=== PATIENT | female | born 1945 | race African-American/Black ===

== ENCOUNTER 2018-06-16 12:05 | Emergency (ER) | payer MEDICARE, BC ==
[~2018-06-16] VITALS: Ht 165.1 cm; Wt 68.0 kg
--- NOTE | 2018-06-16 12:19 | NUR ---
C/O GLF + R ANKLE INJURY, -KO. EVIDENCE OF SOFT TISSUE SWELLING. CURRENT PAIN LEVEL 3/10. NO OTHER COMPLAINTS AT THIS TIME. SEEN BY MARLON REY. AWAITING ORDERS.
[2018-06-16] MEDS ORDERED: ACETAMINOPHEN ES 500 MG TABLET ONE (12:56)
--- NOTE | 2018-06-16 12:59 | NUR ---
MEDICATION GIVEN PER ORDER FOR PAIN 08/14.
[2018-06-16] MEDS ORDERED: ACETAMINOPHEN ES 500 MG TABLET PO ONE (13:00)
--- NOTE | 2018-06-16 13:21 | NUR ---
CARDIOPULMONARY TECHNICIAN AT BEDSIDE FOR SPLINT APPLICATION
--- NOTE | 2018-06-16 13:37 | NUR ---
MARLON LUA PAGED FOR ORTHO CONSULT
--- NOTE | 2018-06-16 14:00 | NUR ---
MARLON LAU PAGED AGAIN
[2018-06-16 14:19] VITALS: BP 136/93
--- NOTE | 2018-06-16 14:19 | NUR ---
Patient discharged to home in stable condition. Written and verbal after care instructions given. Patient verbalizes understanding of instruction.
[2018-06-30] MEDS ORDERED: ASPI-992 PO (08:23)
== END 2018-06-16 14:21 | disposition home or self-care (01) ==
LOC: ER 12:07
DX: S82.61XA Displaced fracture of lateral malleolus of right fibula, initial encounter for closed fracture (principal); S90.01XA Contusion of right ankle, initial encounter; F20.9 Schizophrenia, unspecified; F22 Delusional disorders; Z85.3 Personal history of malignant neoplasm of breast; W01.0XXA Fall on same level from slipping, tripping and stumbling without subsequent striking against object, initial encounter; Y93.89 Activity, other specified; Y92.89 Other specified places as the place of occurrence of the external cause; Y99.8 Other external cause status
CPT/HCPCS: 73560-TC; 73590-TC; 73610-TC

== ENCOUNTER 2018-06-27 05:32 | Inpatient (IN) | payer MEDICARE, BC ==
[~2018-06-27] VITALS: Ht 160 cm; Wt 68.0 kg
[2018-06-27] VITALS (12 sets, daily range): BP systolic 123–140; BP diastolic 59–73
[2018-06-27] MEDS ORDERED: ANESTHESIA TRAY IN PYXIS 1 EA TRAY MC ONE (06:26)
[2018-06-27] MEDS ORDERED: BACITRACIN 50000 UNITS/VIAL ONE (06:26)
[2018-06-27] MEDS ORDERED: FENTANYL PF 100MCG/2ML AMPUL ONE ×2 (07:07→08:34)
[2018-06-27] MEDS ORDERED: MIDAZOLAM HCL 2 MG/2ML VIAL ONE (07:08)
[2018-06-27] MEDS ORDERED: HYDROMORPHONE INJ 2 MG/ML DISP.SYRIN ONE (08:49)
[2018-06-27] MEDS ORDERED: KETOROLAC TROMETHAMINE INJ 30 MG/ML VIAL ONE (08:58)
[2018-06-27] MEDS ORDERED: HYDROMORPHONE 1 MG/1 ML DISP.SYRIN ONE (09:02)
--- NOTE | 2018-06-27 09:20 | NUR ---
STOPPER SETTER PATIENT A/OX3, BREATHING EVEN AND UNLABORED, ON O2 AT 3LPM VIA NC SPO2 96%. DAUGHTER AT BEDSIDE, SKIN ASSESSMENT COMPLETED, SKIN DRY AND INTACT, RLE BOOTS IN PLACED, CHECKED FOR CIRCULATION AND BREAKDOWN. VITALS STABLE, NO DISTRESS NOTED, PIV ON LEFT AC G18. NEEDS ATTENDED, CALL LIGHT WITHINR EACh, WILL CONTINUE TO MONITOR.
[2018-06-27] MEDS ORDERED: ZOLPIDEM TARTRATE 5 MG TABLET PO PRN (11:30)
[2018-06-27] MEDS ORDERED: ONDANSETRON HCL/PF 4 MG/2 ML VIAL IVP PRN (11:30)
[2018-06-27] MEDS ORDERED: Z GUARD REMEDY 2 OZ OINT TP PRN (11:30)
[2018-06-27] MEDS ORDERED: ACETAMINOPHEN 325 MG TABLET PO PRN (11:30)
[2018-06-27] MEDS ORDERED: MAGNESIUM HYDROXIDE 30 ML UDC PO PRN (11:30)
[2018-06-27] MEDS ORDERED: MAG HYDROX/AL HYDROX/SIMETH 30 ML UDC PO PRN (11:30)
[2018-06-27] MEDS ORDERED: HALO2TAB PO (13:29)
[2018-06-27] MEDS ORDERED: ACET325T53 PO (13:30)
[2018-06-27] MEDS ORDERED: TRAZ-214 PO (13:30)
--- NOTE | 2018-06-27 15:45 | NUR ---
ENDORSED TO BRYCE MCDANIEL FOR CONTINUITY OF CARE.
[2018-06-27] MEDS: CEFAZOLIN 1 GM in IV D5W 50 ML IV SCH ×2 (16:24→23:30)
--- NOTE | 2018-06-27 19:22 | NUR ---
Handoff to JONAS Fernandes. Mika Doty RN
--- NOTE | 2018-06-27 19:45 | NUR ---
MSRN FULLY AWAKE, DAUGHTER AT BEDSIDE.. PAIN TOLERABLE WILL CALL IF PAIN WORSENS. OFFERED BEDPAN VOIDED FREELY FA[place] AM[place] CLEAR YELLOW URINE OUTPUT. SAFETY PRECAUTIONS EMPHASIZED, CALL LIGHT USE REVIEWED WITH PATIENT, APPEARS TO UNDERSTAND. PLAN OF CARE AND MEDICATION REGIMEN EMPHSIZED, WELL UNDERSTOOD.
[2018-06-27] MEDS: HYDROCODONE/APAP 5/325MG 1 EACH TABLET PO PRN (22:04)
--- NOTE | 2018-06-27 22:09 | NUR ---
msrn VERBALIZES RIGHT ANKLE PAIN, S/O ORIF TODAY. NORCO 1 TAB ADMINISTERD. INSTRUCTED TO CALL STAFF IF NO RELIEF. CLOSELY WATCHED.
--- NOTE | 2018-06-27 22:58 | NUR ---
MSRN ENDORSED TO RN FOR CONTINUITY OF CARE
--- NOTE | 2018-06-27 23:00 | NUR ---
MS RN NOTE RECEIVED [facility] REPORT. PT A&O X4, ABLE TO MAKE NEEDS KNOWN. NO SIGNS OF SOB, DISTRESS, NO C/O PAIN. PT CURRENTLY ASLEEP, EASILY AROUSABLE WHEN NAME IS CALLED. ALL CURRENT NEEDS MET. SAFETY PRECAUTIONS IN PLACE: BED LOW, LOCKED, UPPER RAILS UP, AND CALL LIGHT WITHIN REACH. WILL CONT. TO MONITOR.
[2018-06-27] MEDS ORDERED: HALOPERIDOL 1 MG TABLET PO SCH (23:30)
[2018-06-28] MEDS: HYDROCODONE/APAP 5/325MG 1 EACH TABLET PO PRN ×2 (03:29→08:41)
--- NOTE | 2018-06-28 03:29 | NUR ---
MS RN NOTE PRN NORCO 5-325 MG GIVEN PO FOR PAIN ON R ANKLE 09/13. WILL CONT TO MONITOR.
--- NOTE | 2018-06-28 06:21 | NUR ---
MS RN NOTE PT A&O X4, ABLE TO MAKE NEEDS KNOWN. NO SIGNS OF SOB, DISTRESS, NO C/O PAIN. PT CURRENTLY WATCHING TV. ALL CURRENT NEEDS MET. SAFETY PRECAUTIONS IN PLACE: BED LOW, LOCKED, UPPER RAILS UP, AND CALL LIGHT WITHIN REACH. WILL CONT. TO MONITOR AND ENDORSE TO NEXT SHIFT FOR LEV.
[2018-06-28 06:32] LABS: BASOPHILS % (AUTO) 0.5 % (0.0-2.0); EOSINOPHILS % (AUTO) 1.7 % (0.0-6.0); HEMATOCRIT 29 % (33-45); LYMPHOCYTES # (AUTO) 1.6 /CMM (0.8-4.8); LYMPHOCYTES % (AUTO) 22.9 % (20.0-44.0); MEAN CORPUSCULAR HGB CONC 35 g/dl (31.0-36.0); MEAN CORPUSCULAR VOLUME 96 fL (82-100); MONOCYTES # (AUTO) 0.8 /CMM (0.1-1.30); MONOCYTES % (AUTO) 12.2 % (2.0-12.0); NEUTROPHILS # (AUTO) 4.3 /CMM (1.8-8.9); NEUTROPHILS % (AUTO) 62.7 % (43.0-81.0); PLATELET COUNT (AUTO) 268 /CMM (150-450); RED BLOOD CELL COUNT(AUTO) 3.03 MIL/uL (4.0-5.2); WHITE BLOOD COUNT (AUTO) 6.8 K/uL (4.3-11.0)
[2018-06-28 06:47] LABS: CHOLESTEROL 181 mg/dL (<200); HDL CHOLESTEROL 57 mg/dL (40-60); LDL 117 mg/dL (0-99); TRIGLYCERIDES 45 mg/dL (30-150)
[2018-06-28 06:56] LABS: CALCIUM, SERUM 8.9 mg/dL (8.5-10.1); CARBON DIOXIDE 27 mmol/L (21-32); CHLORIDE 106 mmol/L (98-107); CREATININE 0.9 mg/dL (0.6-1.3); GLUCOSE 93 mg/dL (74-106); MAGNESIUM 1.9 mg/dL (1.8-2.4); PHOSPHORUS 3.8 mg/dL (2.5-4.9); POTASSIUM 4.3 mmol/L (3.5-5.1); SODIUM SERUM 141 mmol/L (136-145); UREA NITROGEN, BLOOD 13 mg/dL (7-18)
[2018-06-28 08:00] VITALS: BP 116/64
--- NOTE | 2018-06-28 08:15 | NUR ---
MS RN RECEIVED ON BED, AWAKE,ALERT,ORIENTED X4,NOT IN ANY FORM OF DISTRESS, RESPIRATIONS EVEN AND UNLABORED,NO SOB NOTED, LUNGS ARE CLEAR,ABDOMEN SOFT,POSITIVE BOWEL SOUNDS,DENIES PAIN AT THIS TIME, WILL MONITOR PATIENT'S CONDITION.
[2018-06-28] MEDS: ASPIRIN 325 MG TABLET PO SCH (08:39)
--- NOTE | 2018-06-28 09:00 | NUR ---
MS MCDANIEL BREAKFAST SERVED,DUE MED GIVEN,TOLERATED WELL.
--- NOTE | 2018-06-28 10:00 | NUR ---
ms rn was seen by dennis allen/ orders made and carried out.
[2018-06-28 16:00] VITALS: BP 124/67
[2018-06-28] MEDS: MORPHINE SULFATE INJ 2 MG/ML DISP.SYRIN IV PRN ×2 (16:57→20:50)
--- NOTE | 2018-06-28 19:19 | NUR ---
MS RN ON BED, NO DISTRESS ALL NEEDS ATTENDED.
[2018-06-28 20:00] VITALS: BP 146/82
--- NOTE | 2018-06-28 20:00 | NUR ---
rn opening note patient seen in bed down locked srx2. patient is on ra in no apparent distress. patietn is post op day 2 for right ankle orif patient has boot to right ankle nwb to right foot. reviewed poc. questions concerns addressed. call light in reach verbalized understanding to call for assistance as needed.
[2018-06-28] MEDS ORDERED: HALOPERIDOL ORAL CONC 2 MG/ML BOTTLE PO SCH (22:00)
[2018-06-28] MEDS: TRAZODONE 50 MG TABLET PO PRN (23:26)
--- NOTE | 2018-06-29 07:30 | NUR ---
RN CLOSING NOTES. REPORT GIVEN TO RUKHSANA . PATIENT IN NO APPARENT DISTRESS. IN BED DOWN LOCKED SR X2 CALL LIGHT IN REACH.
[2018-06-29 07:44] LABS: BASOPHILS % (AUTO) 0.7 % (0.0-2.0); EOSINOPHILS % (AUTO) 2.7 % (0.0-6.0); HEMATOCRIT 30 % (33-45); HEMOGLOBIN 10.1 g/dL (11.5-14.8); LYMPHOCYTES # (AUTO) 1.4 /CMM (0.8-4.8); MEAN CORPUSCULAR HGB CONC 34 g/dl (31.0-36.0); MEAN CORPUSCULAR VOLUME 95 fL (82-100); MONOCYTES # (AUTO) 0.8 /CMM (0.1-1.30); MONOCYTES % (AUTO) 12.5 % (2.0-12.0); NEUTROPHILS # (AUTO) 3.9 /CMM (1.8-8.9); NEUTROPHILS % (AUTO) 61.1 % (43.0-81.0); PLATELET COUNT (AUTO) 271 /CMM (150-450); RED BLOOD CELL COUNT(AUTO) 3.17 MIL/uL (4.0-5.2); WHITE BLOOD COUNT (AUTO) 6.3 K/uL (4.3-11.0)
[2018-06-29 07:59] LABS: CARBON DIOXIDE 27 mmol/L (21-32); CHLORIDE 106 mmol/L (98-107); CREATININE 0.9 mg/dL (0.6-1.3); GLUCOSE 95 mg/dL (74-106); SODIUM SERUM 140 mmol/L (136-145); UREA NITROGEN, BLOOD 14 mg/dL (7-18)
--- NOTE | 2018-06-29 08:00 | NUR ---
MS RN RECEIVED ON BED, AWAKE,ALERT,ORIENTED X4,NOT IN ANY FORM OF DISTRESS,RESPIRATIONS EVEN AND UNLABORED,NO SOB NOTED, LUNGS ARE CLEAR,ABDOMEN SOFT,POSITIVE BOWEL SOUNDS,DENIES PAIN AT THIS TIME,ALL NEEDS ATTENDED.
[2018-06-29 08:36] VITALS: BP 102/50
[2018-06-29] MEDS: ASPIRIN 325 MG TABLET PO SCH (08:41)
--- NOTE | 2018-06-29 08:50 | NUR ---
MS RN WAS SEEN BY DR. SRUTHI Huff/ MAGDALENO TO GO HOME IN AM.
--- NOTE | 2018-06-29 09:00 | NUR ---
MS MCDANIEL BREAKFAST SERVED,DUE MEDS GIVEN,TOLERATED WELL.
--- NOTE | 2018-06-29 11:00 | NUR ---
MS MCDANIEL WAS SEEN BY PT, TOLERATED EXERCISE WELL.
[2018-06-29 17:03] VITALS: BP 106/56
--- NOTE | 2018-06-29 17:36 | NUR ---
MS RN ON BED, NO DISTRESS NOTED,ALL NEEDS ATTENDED.
--- NOTE | 2018-06-29 19:20 | NUR ---
rn pm opening note report recieved from rommel chavez. patient seen in bed. wearing ankle brace. has sensation and good circulation to right foot. cap refill less then 3 seconds. on ra in no distress. bed down locked call ligth in reach. verbalizes understanding to call for assistnace as needed.
[2018-06-29 20:00] VITALS: BP 107/66
[2018-06-29] MEDS ORDERED: HALDOL PO SCH (22:00)
[2018-06-29] MEDS: TRAZODONE 50 MG TABLET PO PRN (22:37)
[2018-06-30 06:53] LABS: BASOPHILS % (AUTO) 0.5 % (0.0-2.0); EOSINOPHILS % (AUTO) 4.1 % (0.0-6.0); HEMATOCRIT 29 % (33-45); HEMOGLOBIN 9.8 g/dL (11.5-14.8); LYMPHOCYTES # (AUTO) 1.1 /CMM (0.8-4.8); LYMPHOCYTES % (AUTO) 18.6 % (20.0-44.0); MEAN CORPUSCULAR HGB CONC 35 g/dl (31.0-36.0); MEAN CORPUSCULAR VOLUME 95 fL (82-100); MONOCYTES # (AUTO) 0.7 /CMM (0.1-1.30); MONOCYTES % (AUTO) 11.3 % (2.0-12.0); NEUTROPHILS # (AUTO) 3.8 /CMM (1.8-8.9); NEUTROPHILS % (AUTO) 65.5 % (43.0-81.0); PLATELET COUNT (AUTO) 277 /CMM (150-450); WHITE BLOOD COUNT (AUTO) 5.9 K/uL (4.3-11.0)
[2018-06-30 07:20] LABS: CALCIUM, SERUM 8.9 mg/dL (8.5-10.1); CARBON DIOXIDE 27 mmol/L (21-32); CHLORIDE 105 mmol/L (98-107); CREATININE 0.9 mg/dL (0.6-1.3); GLUCOSE 97 mg/dL (74-106); POTASSIUM 3.9 mmol/L (3.5-5.1); SODIUM SERUM 140 mmol/L (136-145); UREA NITROGEN, BLOOD 17 mg/dL (7-18)
--- NOTE | 2018-06-30 07:20 | NUR ---
rn closing note. bedside report given to elvira chavez. patient awake alert. bed down locked. poc reviewed with patient questions concerns addressed. patient left with call light in reach.
--- NOTE | 2018-06-30 07:39 | NUR ---
MS RN OPENING NOTE RECEIVED PATIENT IN BED. SLEEPING, EASILY AROUSED WITH VERBAL STIMULI. ORIENTED X3. ON ROOM AIR. TOLERATING WELL . IN NO APPARENT DISTRESS OR DISCOMFORT AT THIS TIME. RESPIRATIONS EVEN AND UNLABORED. DENIES SOB. REPORTS MILD PAIN ONLY WHEN MOVING THE ANKLE. PATIENT IS ABLE TO COMMUNICATE NEEDS. LEFT FA 22G IVC SL, PATENT AND INTACT. PATIENT KEPT CLEAN AND COMFORTABLE. ALL NEEDS ATTENDED, SAFETY MEASURES IN P[LACE, BED IN LOW LOCKED POSITION, SIDE RAILS UP X2, CALL LIGHT WITHIN EASY REACH. WILL CONTINUE TO MONITOR.
[2018-06-30 08:00] VITALS: BP 101/47
[2018-06-30] MEDS: ASPIRIN 325 MG TABLET PO SCH (08:11)
[2018-06-30] MEDS ORDERED: ASPI-992 PO (08:23)
--- NOTE | 2018-06-30 15:12 | NUR ---
REPORT GIVEN TO JONAS HERRERA AT [facility] REGARDING PATIENT'S TRANSFER. AWAITING PICKUP AT THIS TIME.
[2018-06-30 16:00] VITALS: BP 116/69
--- NOTE | 2018-06-30 18:39 | NUR ---
MS END TOUCHING MACHINE OPERATOR NOTE RECEIVED ORDER FOR DISCHARGE. PATIENT IS BEING DISCHARGED TO [facility] FOR REHABILITATION. PATIENT IS STABLE, VITAL SIGNS STABLE. ALERT ORIENTED X4. ON ROOM AIR, TOLERATING WELL. IN NO APPARENT DISTRESS OR DISCOMFORT AT THIS TIME. RESPIRATIONS EVEN AND UNLABORED, DENIES PAIN AND SOB. DISCHARGE PAPERWORK PREPARED VIA [employer]. EDUCATION PROVIDED REGARDING HEALTH MANAGEMENT AND FOLLOW UP CARE. PATIENT'S NEEDS WILL BE TAKEN CARE OF IN SNF. BELONGINGS CHECKED AND ACCOUNTED FOR, MEDICATIONS PICKED UP FROM PHARMACY AND RETURNED TO PATIENT/DAUGHTER. ALL NEEDED PAPERS SIGNED, COPIES MADE PLACED IN CHART. WRITTEN EDUCATIONAL MATERIAL PROVIDED IN DISCHARGE POCKET. MEDICATIONS REVIEWED WITH THE PATIENT. PATIENT REFUSED VACCINATIONS. PATIENT'S SURGICAL DRESSING IS INTACT, SPLINT IN PLACE. LEFT FA IV CANALS DISCONTINUED, TIP INTACT. ID BAND REMOVED. PATIENT WAS PICKED UP BY AMBULANCE AND LEFT THE UNIT AT 1820.
== END 2018-06-30 18:30 | DRG 494 ==
LOC: DS 05:32 → MED 09:47
PROVIDERS: ADMIT Family Medicine; ATTEND Family Medicine
PROC: 0QSJ04Z Reposition Right Fibula with Internal Fixation Device, Open Approach (ICD-10-PCS; principal; 2018-06-27)
DX: S82.61XA Displaced fracture of lateral malleolus of right fibula, initial encounter for closed fracture (principal); W10.9XXA Fall (on) (from) unspecified stairs and steps, initial encounter; Y92.26 Movie house or cinema as the place of occurrence of the external cause; F41.9 Anxiety disorder, unspecified; Z85.3 Personal history of malignant neoplasm of breast; D64.9 Anemia, unspecified
CPT/HCPCS: 36415; 73600-TC; 80048-TC; 80061-TC; 82962-TC; 83735-TC; 84100-TC; 85025-TC; 87081-TC; 97116-TC; 97530-TC; A6402; C1713; G0378; J0690; J1170; J1885; J2250; J2270; J2405; J2704; J3010; J7030; J7050; J7060

== ENCOUNTER 2022-09-30 19:19 | Emergency (ER) | payer MEDICARE, BC ==
[~2022-09-30] VITALS: Ht 160 cm; Wt 69.4 kg
[~2022-09-30 19:19] MED LIST: ACET325T53 PO; ASPI-992 PO; HALO2TAB PO; TRAZ-257 PO
--- NOTE | 2022-09-30 21:10 | NUR ---
Note huber in EDM - 09/30/22 at 2153 by HERNAN BIB daughter from home, c/o: left breast pain since Tuesday. Pt AAO x 4, ambulatory, breathing unlabored, daughter at bedside. Pt attached to monitor and pulse ox. awaiting MD hdez.
--- NOTE | 2022-09-30 21:50 | NUR ---
grades 7 8 tutor at bedside
--- NOTE | 2022-09-30 21:51 | NUR ---
BIB daughter from home, c/o: left RIB PAIN PER MD ASSESSMENT. X RAY AND EKG ORDERED AND DONE. NKA. HISTORY OF RIGHT BREAST CA. VITALS ARE STABLE. PLACED IN BED AND CHANGED INTO A GOWN.
--- NOTE | 2022-09-30 23:06 | NUR ---
Patient discharged to home in stable condition. Written and verbal after care instructions given. Patient verbalizes understanding of instruction. Pt ambulatory with a steady gait
[2022-09-30 23:07] VITALS: BP 172/66; TEMP 98.5; O2SAT 99
== END 2022-09-30 23:07 | disposition home or self-care (01) ==
LOC: ER 19:21
DX: S23.41XA Sprain of ribs, initial encounter (principal); Z79.899 Other long term (current) drug therapy; Z98.890 Other specified postprocedural states; X58.XXXA Exposure to other specified factors, initial encounter; Y93.89 Activity, other specified; Y92.89 Other specified places as the place of occurrence of the external cause; Y99.8 Other external cause status
CPT/HCPCS: 71100-TC

== ENCOUNTER 2024-04-07 23:45 | Emergency (ER) | payer MEDICARE, BC ==
[~2024-04-07] VITALS: Ht 162.6 cm; Wt 70.8 kg
[2024-04-08 00:42] LABS: BASOPHILS % (AUTO) 0.2 % (0.0-2.0); EOSINOPHILS % (AUTO) 0.1 % (0.0-6.0); HEMATOCRIT 35 % (33-45); HEMOGLOBIN 12.1 g/dL (11.5-14.8); LYMPHOCYTES # (AUTO) 0.4 K/uL (0.8-4.8); LYMPHOCYTES % (AUTO) 3.7 % (20.0-44.0); MEAN CORPUSCULAR HEMOGLOBIN 33 PG (26.0-33.0); MEAN CORPUSCULAR HGB CONC 34 g/dl (31.0-36.0); MEAN CORPUSCULAR VOLUME 97 fL (82-100); MONOCYTES # (AUTO) 0.7 K/uL (0.1-1.30); MONOCYTES % (AUTO) 5.8 % (2.0-12.0); NEUTROPHILS # (AUTO) 10.2 K/uL (1.8-8.9); NEUTROPHILS % (AUTO) 90.2 % (43.0-81.0); PLATELET COUNT (AUTO) 247 K/uL (150-450); RED BLOOD CELL COUNT(AUTO) 3.62 MIL/uL (4.0-5.2); RED CELL DISTRIBUTION WIDTH 13.3 % (11.5-15.0); WHITE BLOOD COUNT (AUTO) 11.4 K/uL (4.3-11.0)
[2024-04-08 00:48] LABS: CALCIUM, SERUM 9.2 mg/dL (8.5-10.1); CARBON DIOXIDE 26 mmol/L (21-32); CHLORIDE 100 mmol/L (98-107); CREATININE 1.6 mg/dL (0.6-1.3); GLUCOSE 174 mg/dL (74-106); POTASSIUM 3.5 mmol/L (3.5-5.1); SODIUM SERUM 136 mmol/L (136-145); UREA NITROGEN, BLOOD 16 mg/dL (7-18)
[2024-04-08 00:54] LABS: ALANINE AMINOTRANSFERASE 28 U/L (12-78); ALBUMIN 3.3 g/dL (3.4-5.0); ALKALINE PHOSPHATASE 89 U/L (46-116); ASPARTATE AMINOTRANSFERASE 23 U/L (15-37); BILIRUBIN,DIRECT 0.1 mg/dL (0.0-0.2); BILIRUBIN,TOTAL 0.3 mg/dL (0.2-1.0); INR 1.06 (0.91-1.10); PARTIAL THROMBOPLASTIN TIME 27.1 SEC (24.3-34.3); PROTHROMBIN TIME 11.2 SECS (9.2-11.1); TOTAL PROTEIN, SERUM 8.2 g/dL (6.4-8.2)
[2024-04-08] MEDS: IV NS 0.9% 1,000 ML BAG IV ONE (01:35)
[2024-04-08] MEDS ORDERED: ONDA4TAB5 PO (02:26)
[2024-04-08 02:35] VITALS: BP 110/61; TEMP 98; O2SAT 98
== END 2024-04-08 02:35 | disposition home or self-care (01) ==
LOC: ER 23:53
DX: K92.0 Hematemesis (principal); R19.5 Other fecal abnormalities; R68.83 Chills (without fever); N18.9 Chronic kidney disease, unspecified; Z79.82 Long term (current) use of aspirin; Z85.3 Personal history of malignant neoplasm of breast
CPT/HCPCS: 99283; 96360; 85025; 80048; 80076; 36415; 85730; 86850; J7030

== ENCOUNTER 2024-07-19 17:25 | Emergency (ER) | payer MEDICARE, BC ==
[~2024-07-19] VITALS: Ht 160 cm; Wt 65.8 kg
[~2024-07-19 17:25] MED LIST changes: +ONDA4TAB5 PO
[2024-07-19] MEDS ORDERED: LIDOCAINE 5% (PATCH) 1 EA PATCH TP ONE (18:53)
[2024-07-19] MEDS ORDERED: ACETAMINOPHEN 325 MG TABLET ONE (18:53)
[2024-07-19] MEDS: ACETAMINOPHEN 325 MG TABLET PO ONE (18:58)
[2024-07-19] MEDS ORDERED: ACET-2605 PO (19:06)
[2024-07-19] MEDS ORDERED: LIDO30AD10 TP (19:06)
[2024-07-19] MEDS: LIDOCAINE 5% (PATCH) 1 EA PATCH TP STA (19:07)
[2024-07-19 21:05] VITALS: BP 141/79; TEMP 87; O2SAT 98
== END 2024-07-19 21:05 | disposition home or self-care (01) ==
LOC: ER 17:27
DX: M54.50 Low back pain, unspecified (principal); Z79.82 Long term (current) use of aspirin; Z79.899 Other long term (current) drug therapy; W01.0XXA Fall on same level from slipping, tripping and stumbling without subsequent striking against object, initial encounter; Y93.89 Activity, other specified; Y92.89 Other specified places as the place of occurrence of the external cause; Y99.8 Other external cause status